=== PATIENT | male | born 1955 | race Caucasian/White ===

== ENCOUNTER 2023-06-23 10:57 | Emergency (ER) | payer OTHER ==
[~2023-06-23] VITALS: Ht 188 cm; Wt 104.3 kg
[2023-06-23 12:25] VITALS: BP 128/79
== END 2023-06-23 12:25 | disposition home or self-care (01) ==
LOC: ER 10:57
DX: T22.212A Burn of second degree of left forearm, initial encounter (principal); T22.211A Burn of second degree of right forearm, initial encounter; T22.019A Burn of unspecified degree of unspecified forearm, initial encounter; T21.02XA Burn of unspecified degree of abdominal wall, initial encounter; T31.0 Burns involving less than 10% of body surface; I10 Essential (primary) hypertension; G89.29 Other chronic pain; X08.8XXA Exposure to other specified smoke, fire and flames, initial encounter; Y92.029 Unspecified place in mobile home as the place of occurrence of the external cause; Z79.899 Other long term (current) drug therapy
CPT/HCPCS: 90471; 90714; 99284